=== PATIENT | female | born 1945 | race Caucasian/White ===

== ENCOUNTER 2020-01-10 14:57 | Inpatient (IN) ==
[2020-01-10] MEDS ORDERED: Naloxone 0.4 MG/ML INJ IVP PRN (17:15)
[2020-01-10] MEDS ORDERED: Perflutren Lipid Microsphere 1.3 ML in 0.9 % Sodium Chloride 8.7 ML IVP PRN ×2 (17:18→17:22)
[2020-01-10] MEDS: 0.9 % Sodium Chloride 1,000 ML IVC SCH (19:35)
[2020-01-10 19:36] LABS: Troponin I 0.26 ng/mL (< 0.04)
[2020-01-10 19:49] LABS: Thyroid Stimulating Hormone 2.643 mcIU/mL (0.340-5.600)
[2020-01-11] MEDS: 0.9 % Sodium Chloride 1,000 ML IVC SCH ×3 (01:41→14:59)
[2020-01-11 01:52] LABS: Basophils % 0.2 %; Hematocrit 35.2 % (35.3-44.9); Hemoglobin 11.5 g/dL (11.5-15.4); Immature Granulocytes % 0.6 % (0-4); Lymphocytes # 1.2 K/mcL (0.6-4.6); Lymphocytes % 9.6 %; Mean Corpuscular HGB Conc 32.7 g/dL (31.6-35.5); Mean Corpuscular Hemoglobin 28.2 pg (28.0-33.3); Mean Corpuscular Volume 86.3 fL (83.0-100.0); Mean Platelet Volume 9.8 fL (9.4-12.4); Monocytes % 7.4 %; Neutrophils # 10.6 K/mcL (1.6-8.9); Platelet Count 225 K/mcL (140-400); Red Blood Count 4.08 M/mcL (3.82-4.97); Red Cell Distribution Width 14.9 % (11.5-14.5); Segmented Neutrophils % 82.2 %; White Blood Count 12.9 K/mcL (4.3-11.1)
[2020-01-11 02:23] LABS: Calcium 8.5 mg/dL (8.6-10.3); Magnesium 2.4 mg/dL (1.6-2.6); Phosphorous 3.9 mg/dL (2.7-4.5); Potassium 3.8 mEq/L (3.5-5.1)
[2020-01-11] MEDS ORDERED: *HR* Heparin 5,000 UNIT/ML VIAL SQ SCH (06:00)
[2020-01-11] MEDS ORDERED: cefTRIAXone 1,000 MG in Water for inj. (sterile) 10 ML IVP SCH (09:00)
[2020-01-11] MEDS ORDERED: *HR* Rocuronium Bromide 50 MG/5 ML VIAL ONE (09:33)
[2020-01-11] MEDS ORDERED: Dexamethasone 4 MG/ML VIAL ONE (09:33)
[2020-01-11] MEDS ORDERED: *HR* Propofol 200 MG/20 ML VIAL IVP ONE (09:33)
[2020-01-11] MEDS ORDERED: Ondansetron 4 MG/2 ML VIAL ONE (09:33)
[2020-01-11] MEDS ORDERED: *HR* FentaNYL (PF) 250 MCG/5 ML VIAL ONE (09:33)
[2020-01-11] MEDS ORDERED: Famotidine 20 MG/2 ML VIAL ONE (09:34)
[2020-01-11] MEDS ORDERED: *HR* PHENYLEPHRINE 1,000 MCG/10 ML SYRINGE IVP ONE (09:46)
[2020-01-11] MEDS ORDERED: Lidocaine -MPF 2% 2 ML VIAL ONE (09:47)
[2020-01-11] MEDS ORDERED: Doxycycline 800 MG, Syringe CATH TIP 1 EACH IX ONE (10:00)
[2020-01-11] MEDS ORDERED: Albuterol 2.5 MG/3 ML NEBULIZER IH PRN (11:13)
[2020-01-11] MEDS ORDERED: Promethazine 6.25 MG in Water for inj. (sterile) 20 ML IVPB PRN (11:13)
[2020-01-11] MEDS ORDERED: *HR* Metoprolol 5 MG/5 ML VIAL IVP PRN (11:13)
[2020-01-11] MEDS ORDERED: *HR* FentaNYL (PF) 100 MCG/2 ML VIAL IVP PRN (11:13)
[2020-01-11] MEDS ORDERED: Ondansetron 4 MG/2 ML VIAL IVP PRN ×2 (11:13→12:08)
[2020-01-11] MEDS ORDERED: Acetaminophen IV 1,000 MG/100 ML INFUS..BTL ONE (11:15)
[2020-01-11] MEDS ORDERED: *HR* OxyCODONE Immed Rel 5 MG TABLET PO PRN (11:17)
[2020-01-11] MEDS ORDERED: *HR* Labetalol 100 MG/20 ML MDV ONE (11:33)
[2020-01-11] MEDS ORDERED: Naloxone 0.4 MG/ML INJ IVP PRN (12:08)
[2020-01-11] MEDS: *HR* HYDROcodone/Acet 5/325 mg TABLET PO PRN ×2 (12:40→16:27)
[2020-01-11] MEDS: Ipratropium/Albuterol Neb 3 ML IH SCH ×4 (14:17→23:39)
[2020-01-11] MEDS: Famotidine 20 MG TABLET PO SCH (14:27)
[2020-01-11] MEDS: Gabapentin 100 MG CAPSULE PO SCH ×2 (14:59→21:12)
[2020-01-11] MEDS: *HR* Heparin 5,000 UNIT/ML VIAL SQ SCH ×2 (15:01→21:12)
[2020-01-11] MEDS: Nystatin Ointment 15 GM TUBE TP SCH ×2 (16:28→21:08)
[2020-01-11] MEDS: Sennosides/Docusate Sodium TABLET PO SCH (21:12)
[2020-01-11] MEDS: cephALEXin 500 MG CAPSULE PO SCH (21:13)
[2020-01-12] MEDS: *HR* HYDROcodone/Acet 5/325 mg TABLET PO PRN ×3 (00:26→19:17)
[2020-01-12] MEDS: 0.9 % Sodium Chloride 1,000 ML IVC SCH ×2 (03:47→09:00)
[2020-01-12] MEDS: Ipratropium/Albuterol Neb 3 ML IH SCH ×6 (03:59→23:33)
[2020-01-12] MEDS: *HR* Heparin 5,000 UNIT/ML VIAL SQ SCH ×3 (05:19→22:25)
[2020-01-12 05:52] LABS: Basophils % 0.1 %; Hematocrit 37.4 % (35.3-44.9); Hemoglobin 11.8 g/dL (11.5-15.4); Immature Granulocytes % 0.5 % (0-4); Lymphocytes # 0.3 K/mcL (0.6-4.6); Lymphocytes % 2.2 %; Mean Corpuscular HGB Conc 31.6 g/dL (31.6-35.5); Mean Corpuscular Hemoglobin 27.3 pg (28.0-33.3); Mean Corpuscular Volume 86.6 fL (83.0-100.0); Mean Platelet Volume 9.6 fL (9.4-12.4); Monocytes # 0.9 K/mcL (0.0-1.3); Monocytes % 5.7 %; Platelet Count 233 K/mcL (140-400); Red Blood Count 4.32 M/mcL (3.82-4.97); Segmented Neutrophils % 91.5 %; White Blood Count 15.3 K/mcL (4.3-11.1)
[2020-01-12 05:53] LABS: VBG Ionized Calcium 1.11 mmol/L (1.15-1.35)
[2020-01-12 06:19] LABS: Albumin 3.5 g/dL (3.5-5.7); Albumin/Globulin Ratio 1.2 (1.1-2.2); Bilirubin,Total 0.5 mg/dL (0.3-1.0); Calcium 8.6 mg/dL (8.6-10.3); Globulin 2.9 g/dL (2.4-3.5); Magnesium 1.9 mg/dL (1.6-2.6); Phosphorous 2.9 mg/dL (2.7-4.5); Potassium 3.6 mEq/L (3.5-5.1); Total Protein 6.4 g/dL (6.4-8.9)
[2020-01-12] MEDS: Famotidine 20 MG TABLET PO SCH (08:07)
[2020-01-12] MEDS: Gabapentin 100 MG CAPSULE PO SCH ×3 (08:08→19:17)
[2020-01-12] MEDS: cephALEXin 500 MG CAPSULE PO SCH ×3 (08:08→19:17)
[2020-01-12] MEDS: Sennosides/Docusate Sodium TABLET PO SCH ×2 (08:08→19:18)
[2020-01-12] MEDS: Metoprolol XL (24 HR) Succ 50 MG TAB.ER.24H PO SCH (08:36)
[2020-01-12] MEDS ORDERED: Metoprolol 100 MG TABLET PO SCH (09:00)
[2020-01-12] MEDS: Nystatin Ointment 15 GM TUBE TP SCH ×4 (09:00→19:17)
[2020-01-12 12:51] LABS: Troponin I 0.14 ng/mL (< 0.04)
[2020-01-12] MEDS ORDERED: Acetaminophen 325 MG TABLET PO PRN (16:38)
[2020-01-12 17:18] LABS: Amorphous Sediment,Urine Few per hpf (None-Few); Bilirubin,Urine Negative (Negative); Blood,Urine Large (Negative); Clarity,Urine Clear (Clear); Color,Urine Light-Yellow (Yellow); Glucose,Urine (UA) Normal (Normal); Granular Casts,Urine Moderate per lpf (None Seen); Ketones,Urine Negative (Negative); Leukocyte Esterase,Urine Negative (Negative); Mucus,Urine Few per lpf (None-Few); Nitrite,Urine Negative (Negative); Protein,Urine 100 mg/dL (Neg-Trace); Specific Gravity,Urine 1.017 (1.010-1.025); Squamous Epithelial Cell,Urine Few per hpf (None-Few); Uric Acid Crystals,Urine Present; Urobilinogen,Urine Normal (Normal)
[2020-01-13] MEDS: Ipratropium/Albuterol Neb 3 ML IH SCH ×5 (04:11→19:41)
[2020-01-13] MEDS: 0.9 % Sodium Chloride 1,000 ML IVC SCH (04:11)
[2020-01-13 04:40] LABS: VBG Ionized Calcium 1.17 mmol/L (1.15-1.35)
[2020-01-13 04:44] LABS: Basophils % 0.1 %; Hematocrit 35.8 % (35.3-44.9); Hemoglobin 11.4 g/dL (11.5-15.4); Immature Granulocytes % 0.8 % (0-4); Lymphocytes # 0.7 K/mcL (0.6-4.6); Lymphocytes % 5.4 %; Mean Corpuscular HGB Conc 31.8 g/dL (31.6-35.5); Mean Corpuscular Hemoglobin 27.6 pg (28.0-33.3); Mean Corpuscular Volume 86.7 fL (83.0-100.0); Mean Platelet Volume 9.7 fL (9.4-12.4); Monocytes # 0.7 K/mcL (0.0-1.3); Monocytes % 5.2 %; Neutrophils # 11.6 K/mcL (1.6-8.9); Platelet Count 229 K/mcL (140-400); Red Blood Count 4.13 M/mcL (3.82-4.97); Red Cell Distribution Width 15.2 % (11.5-14.5); Segmented Neutrophils % 88.5 %; White Blood Count 13.1 K/mcL (4.3-11.1)
[2020-01-13 04:54] LABS: Albumin 3.1 g/dL (3.5-5.7); Albumin/Globulin Ratio 1.2 (1.1-2.2); Bilirubin,Total 0.4 mg/dL (0.3-1.0); Calcium 8.5 mg/dL (8.6-10.3); Globulin 2.5 g/dL (2.4-3.5); Phosphorous 2.7 mg/dL (2.7-4.5); Potassium 3.5 mEq/L (3.5-5.1); Total Protein 5.6 g/dL (6.4-8.9)
[2020-01-13] MEDS: *HR* Heparin 5,000 UNIT/ML VIAL SQ SCH ×2 (05:30→14:35)
[2020-01-13] MEDS: Famotidine 20 MG TABLET PO SCH (09:10)
[2020-01-13] MEDS: Metoprolol XL (24 HR) Succ 50 MG TAB.ER.24H PO SCH (09:10)
[2020-01-13] MEDS: Sennosides/Docusate Sodium TABLET PO SCH ×2 (09:10→20:09)
[2020-01-13] MEDS: cephALEXin 500 MG CAPSULE PO SCH ×3 (09:10→20:09)
[2020-01-13] MEDS: Nystatin Ointment 15 GM TUBE TP SCH ×4 (09:10→20:09)
[2020-01-13] MEDS: Gabapentin 100 MG CAPSULE PO SCH ×3 (09:10→20:09)
[2020-01-13] MEDS ORDERED: *HR* HYDROcodone/Acet 5/325 mg TABLET PO PRN (12:33)
[2020-01-13] MEDS ORDERED: Naloxone 0.4 MG/ML INJ IVP PRN (12:33)
[2020-01-13] MEDS ORDERED: Ondansetron 4 MG/2 ML VIAL IVP PRN (12:33)
[2020-01-13] MEDS ORDERED: Acetaminophen 325 MG TABLET PO PRN (12:33)
[2020-01-13] MEDS ORDERED: 0.9 % Sodium Chloride 1,000 ML IVC SCH (15:15)
[2020-01-14] MEDS: Ipratropium/Albuterol Neb 3 ML IH SCH ×7 (00:08→23:58)
[2020-01-14] MEDS: *HR* Heparin 5,000 UNIT/ML VIAL SQ SCH ×4 (00:09→20:17)
[2020-01-14 04:26] LABS: Basophils % 0.1 %; Eosinophils % 0.2 %; Hematocrit 36.2 % (35.3-44.9); Hemoglobin 11.6 g/dL (11.5-15.4); Immature Granulocytes % 0.5 % (0-4); Lymphocytes % 10.4 %; Mean Corpuscular Hemoglobin 27.6 pg (28.0-33.3); Mean Corpuscular Volume 86.2 fL (83.0-100.0); Mean Platelet Volume 9.6 fL (9.4-12.4); Monocytes # 0.6 K/mcL (0.0-1.3); Monocytes % 6.5 %; Platelet Count 224 K/mcL (140-400); Red Cell Distribution Width 15.5 % (11.5-14.5); Segmented Neutrophils % 82.3 %; White Blood Count 9.8 K/mcL (4.3-11.1)
[2020-01-14 04:49] LABS: Albumin/Globulin Ratio 1.2 (1.1-2.2); Bilirubin,Total 0.4 mg/dL (0.3-1.0); Calcium 8.3 mg/dL (8.6-10.3); Globulin 2.5 g/dL (2.4-3.5); Magnesium 1.8 mg/dL (1.6-2.6); Phosphorous 2.9 mg/dL (2.7-4.5); Potassium 3.6 mEq/L (3.5-5.1); Total Protein 5.5 g/dL (6.4-8.9)
[2020-01-14 05:10] LABS: VBG Ionized Calcium 1.15 mmol/L (1.15-1.35)
[2020-01-14] MEDS: Gabapentin 100 MG CAPSULE PO SCH ×3 (09:38→20:16)
[2020-01-14] MEDS: Famotidine 20 MG TABLET PO SCH (09:38)
[2020-01-14] MEDS: Metoprolol XL (24 HR) Succ 50 MG TAB.ER.24H PO SCH (09:38)
[2020-01-14] MEDS: Sennosides/Docusate Sodium TABLET PO SCH ×2 (09:38→20:17)
[2020-01-14] MEDS: cephALEXin 500 MG CAPSULE PO SCH ×3 (09:38→20:16)
[2020-01-14] MEDS: Nystatin Ointment 15 GM TUBE TP SCH ×4 (09:39→20:19)
[2020-01-14] MEDS: hydrALAZINE 25 MG TABLET PO SCH ×4 (12:36→23:38)
[2020-01-15] MEDS ORDERED: *HR* Labetalol 20 MG/4 ML SYRINGE IVP ONE (01:34)
[2020-01-15] MEDS: Ipratropium/Albuterol Neb 3 ML IH SCH ×6 (04:41→23:46)
[2020-01-15] MEDS: hydrALAZINE 25 MG TABLET PO SCH ×4 (04:59→23:50)
[2020-01-15] MEDS: *HR* Heparin 5,000 UNIT/ML VIAL SQ SCH ×3 (04:59→21:01)
[2020-01-15] MEDS ORDERED: amLODIPine 5 MG TABLET PO SCH (09:00)
[2020-01-15] MEDS: Famotidine 20 MG TABLET PO SCH (09:09)
[2020-01-15] MEDS: cephALEXin 500 MG CAPSULE PO SCH ×3 (09:09→21:01)
[2020-01-15] MEDS: Sennosides/Docusate Sodium TABLET PO SCH ×2 (09:09→21:01)
[2020-01-15] MEDS: Gabapentin 100 MG CAPSULE PO SCH ×3 (09:10→21:01)
[2020-01-15] MEDS: Metoprolol XL (24 HR) Succ 50 MG TAB.ER.24H PO SCH (09:10)
[2020-01-15] MEDS: Nystatin Ointment 15 GM TUBE TP SCH ×4 (09:11→21:01)
[2020-01-15 15:17] LABS: Calcium 8.6 mg/dL (8.6-10.3); Potassium 3.8 mEq/L (3.5-5.1)
[2020-01-16 01:44] LABS: Basophils % 0.5 %; Eosinophils # 0.2 K/mcL (0.0-0.6); Eosinophils % 1.9 %; Hematocrit 39.3 % (35.3-44.9); Hemoglobin 12.2 g/dL (11.5-15.4); Immature Granulocytes % 0.7 % (0-4); Lymphocytes # 0.9 K/mcL (0.6-4.6); Lymphocytes % 10.5 %; Mean Corpuscular Hemoglobin 27.2 pg (28.0-33.3); Mean Corpuscular Volume 87.5 fL (83.0-100.0); Mean Platelet Volume 10.1 fL (9.4-12.4); Monocytes # 0.6 K/mcL (0.0-1.3); Monocytes % 7.2 %; Neutrophils # 6.8 K/mcL (1.6-8.9); Platelet Count 233 K/mcL (140-400); Red Blood Count 4.49 M/mcL (3.82-4.97); Red Cell Distribution Width 15.5 % (11.5-14.5); Segmented Neutrophils % 79.2 %; White Blood Count 8.6 K/mcL (4.3-11.1)
[2020-01-16 01:55] LABS: Calcium 8.5 mg/dL (8.6-10.3); Potassium 3.4 mEq/L (3.5-5.1)
[2020-01-16] MEDS: Ipratropium/Albuterol Neb 3 ML IH SCH ×5 (04:11→19:54)
[2020-01-16] MEDS: hydrALAZINE 25 MG TABLET PO SCH ×3 (05:54→16:54)
[2020-01-16] MEDS: *HR* Heparin 5,000 UNIT/ML VIAL SQ SCH ×3 (05:54→20:33)
[2020-01-16] MEDS: Gabapentin 100 MG CAPSULE PO SCH ×3 (09:10→20:33)
[2020-01-16] MEDS: amLODIPine 5 MG TABLET PO SCH ×2 (09:10→20:33)
[2020-01-16] MEDS: Famotidine 20 MG TABLET PO SCH (09:10)
[2020-01-16] MEDS: cephALEXin 500 MG CAPSULE PO SCH ×2 (09:10→14:49)
[2020-01-16] MEDS: Sennosides/Docusate Sodium TABLET PO SCH ×2 (09:11→20:33)
[2020-01-16] MEDS: Metoprolol XL (24 HR) Succ 50 MG TAB.ER.24H PO SCH (09:11)
[2020-01-16] MEDS: Nystatin Ointment 15 GM TUBE TP SCH ×4 (09:12→20:34)
[2020-01-16] MEDS: lisinopriL 20 MG TABLET PO SCH (09:13)
[2020-01-16 20:33] LABS: Adenovirus Not Detected (Not Detect); Bordetella Pertussis Not Detected (Not Detect); Chlamydophila pneumoniae Not Detected (Not Detect); Coronavirus 229E Not Detected (Not Detect); Coronavirus HKU1 Not Detected (Not Detect); Coronavirus NL63 Not Detected (Not Detect); Coronavirus OC43 Not Detected (Not Detect); Human Metapneumovirus Not Detected (Not Detect); Human Rhinovirus/Enterovirus Not Detected (Not Detect); Influenza A Subtype 2009 H1 Not Detected (Not Detect); Influenza B Not Detected (Not Detect); Mycoplasma pneumoniae Not Detected (Not Detect); Parainfluenza Virus 1 Not Detected (Not Detect); Parainfluenza Virus 2 Not Detected (Not Detect); Parainfluenza Virus 3 Not Detected (Not Detect); Parainfluenza Virus 4 Not Detected (Not Detect); Respiratory Syncytial Virus Not Detected (Not Detect); SARS-CoV-2 Not Detected (Not Detect)
[2020-01-17] MEDS: hydrALAZINE 25 MG TABLET PO SCH ×2 (00:12→06:17)
[2020-01-17] MEDS: Ipratropium/Albuterol Neb 3 ML IH SCH ×3 (00:12→07:19)
[2020-01-17 01:19] LABS: Basophils % 0.4 %; Eosinophils # 0.2 K/mcL (0.0-0.6); Eosinophils % 2.7 %; Hematocrit 36.6 % (35.3-44.9); Hemoglobin 11.6 g/dL (11.5-15.4); Immature Granulocytes % 1.1 % (0-4); Lymphocytes % 11.8 %; Mean Corpuscular HGB Conc 31.7 g/dL (31.6-35.5); Mean Corpuscular Volume 88.2 fL (83.0-100.0); Mean Platelet Volume 9.9 fL (9.4-12.4); Monocytes # 0.8 K/mcL (0.0-1.3); Neutrophils # 6.1 K/mcL (1.6-8.9); Platelet Count 222 K/mcL (140-400); Red Blood Count 4.15 M/mcL (3.82-4.97); Red Cell Distribution Width 15.8 % (11.5-14.5); White Blood Count 8.3 K/mcL (4.3-11.1)
[2020-01-17 01:42] LABS: Calcium 8.6 mg/dL (8.6-10.3); Potassium 3.9 mEq/L (3.5-5.1)
[2020-01-17] MEDS: *HR* Heparin 5,000 UNIT/ML VIAL SQ SCH (06:17)
[2020-01-17 06:45] VITALS: BP 152/73
[2020-01-17] MEDS: Sennosides/Docusate Sodium TABLET PO SCH (08:14)
[2020-01-17] MEDS: lisinopriL 20 MG TABLET PO SCH (08:14)
[2020-01-17] MEDS: Famotidine 20 MG TABLET PO SCH (08:14)
[2020-01-17] MEDS: Metoprolol XL (24 HR) Succ 50 MG TAB.ER.24H PO SCH (08:14)
[2020-01-17] MEDS: Gabapentin 100 MG CAPSULE PO SCH (08:14)
[2020-01-17] MEDS: amLODIPine 5 MG TABLET PO SCH (08:14)
[2020-01-19 10:22] LABS: ANA IgG by ELISA DETECTED (None Detected)
[2020-01-20 09:09] LABS: ANA HEp-2 IgG IFA DETECTED (<1:80); Anti Nuclear Ab Pattern CENTROMERE
== END 2020-01-17 10:15 | DRG 270 ==
LOC: 2ANU → SUATTDRO 21:16 → ICNU 01-11 10:53 → 2NNU 01-13 21:21 → 2ANU 01-16 14:57
PROVIDERS: ADMIT Internal Medicine; ATTEND Internal Medicine